=== PATIENT | male | born 1975 ===

== ENCOUNTER 2020-07-16 17:35 | Emergency (ER) | payer SELFPAY ==
[2020-07-16] MEDS ORDERED: Tetracaine HCl/PF 0.5% 4 ML Bottle EYEBOTH ONE (17:48)
--- NOTE | 2020-07-16 18:04 | EDM.PDOC ---
ED HPI GENERAL MEDICAL PROBLEM - General Chief Complaint: Eye Problems Stated Complaint: METAL IN EYE Time Seen by Provider: 07/16/20 17:47 - History of Present Illness INITIAL COMMENTS - FREE TEXT/NARRATIVE: HISTORY AND PHYSICAL: History of present illness: This 45-year-old male was working at home when he got a metal shaving into his left thigh and was unable to remove it. He is an electrician third. He states that he has a foreign body sensation in his left eye. Rates it as mild to moderate. Worse with movement of his eye and opening of the eye. No other modifying, agg ravating or alleviating factors. No other associated signs or symptoms. Review of systems: A 10-point review of systems, other than pertinent positives and negatives as stated per HPI, is otherwise negative. Past medical history: As per history of present illness and as reviewed below otherwise noncontributory. Surgical history: As per history of present illness and as reviewed below otherwise noncontributory. Social history: No reported history of drug or alcohol abuse. Family history: As per history of present illness and as reviewed below otherwise noncontributory. Physical exam: VITAL SIGNS: Reviewed. GENERAL: In no apparent distress. HEAD: No signs of head trauma. EYES: Pupils are equal. Extraocular motions intact. There is a metallic foreign body in the left IN the upper left quadrant but still on the iris area. EARS: Hearing grossly intact. MOUTH: Oropharynx is normal. NECK: No adenopathy, no JVD. CHEST: Chest with clear breath sounds bilaterally. No wheezes, rales, or rhonchi. CARDIAC: Regular rate and rhythm. Normal S1 and S2, without murmurs, gallops, or rubs. VASCULAR: Peripheral pulses normal and equal in all extremities. ABDOMEN: Soft, without detectable tenderness. No sign of distention. No rebound or guarding, and no masses palpated. MUSCULOSKELETAL: Good range of motion of all major joints. Extremities without clubbing, cyanosis or edema. NEUROLOGIC EXAM: Alert and oriented x 3. No focal sensory or motor deficits. Speech normal. Follows commands. PSYCHIATRIC: Mood normal. SKIN: No rash or lesions. Procedure Note: Eye examined under magnification with removal of ocular foreign body Indication: Foreign body sensation in eye with eye pain After adequate anesthesia with proparacaine eyedrops after staining with fluorescein the eye was inspected under high power magnification and with the black light Findings: 1. Slight corneal abrasion 2. [place] foreign body isolated and removed 3. Anterior chamber appears normal Interpretation: Evidence of globe rupture. Metallic foreign body isolated and removed. Small corneal abrasion Signed by Sergio Gray M.D. Initial Differential Diagnosis & Plan: Left eye foreign body, corneal abrasion, globe perforation No evidence of perforation with exam and fluorescein staining. Metallic foreign body was removed. My diagnostic impression: 1. Ocular foreign body; removed 2. Tetanus vaccination is up-to-date 3. Small corneal abrasion Follow-up with ophthalmology. Erythromycin ophthalmic ointment left eye Pain Score (Numeric/FACES): 1 - Related Data Allergies Allergy/AdvReac Type Severity Reaction Status Date / Time Penicillins Allergy Other Verified 07/16/20 17:42 Home Meds: Home Meds Erythromycin Base [Erythromycin 0.5% Ophth Oint] 1 applic .XX BID 7 Days #1 tube 07/16/20 [Rx] Past Medical History HEENT History: Reports: None Cardiovascular History: Reports: None Respiratory History: Reports: None Gastrointestinal History: Reports: None Genitourinary History: Reports: None Musculoskeletal History: Reports: None Neurological History: Reports: None Psychiatric History: Reports: None Endocrine/Metabolic History: Reports: None Hematologic History: Reports: None Immunologic History: Reports: None Oncologic (Cancer) History: Reports: None Dermatologic History: Reports: None - Infectious Disease History Infectious Disease History: Reports: None - Past Surgical History Head Surgeries/Procedures: Reports: None HEENT Surgical History: Reports: None Cardiovascular Surgical History: Reports: None Respiratory Surgical History: Reports: None GI Surgical History: Reports: None Male Surgical History: Reports: None Endocrine Surgical History: Reports: None Neurological Surgical History: Reports: None Musculoskeletal Surgical History: Reports: Other (See Below) Other Musculoskeletal Surgeries/Procedures:: hip, and shoulder surgery Oncologic Surgical History: Reports: None Dermatological Surgical History: Reports: None Social & Family History - Family History Family Medical History: Noncontributory - Tobacco Use Smoking Status *Q: Never Smoker Second Hand Smoke Exposure: No - Caffeine Use Caffeine Use: Reports: None - Recreational Drug Use Recreational Drug Use: No ED ROS GENERAL - Review of Systems Review Of Systems: See Below (noted) ED EXAM GENERAL W FULL EYE - Physical Exam Exam: See Below (noted) Course - Vital Signs Last Recorded V/S: Last Vital Signs Temp 96.9 F 07/16/20 17:43 Pulse 54 L 07/16/20 17:43 Resp 17 07/16/20 17:43 BP 110/80 07/16/20 17:43 Pulse Ox 98 07/16/20 17:43 - Orders/Labs/Meds Meds: Medications Discontinued Medications Generic Name Dose Route Start Last Admin Trade Name Fresandy PRN Reason Stop Dose Admin Tetracaine HCl 1 ml 07/16/20 17:48 07/16/20 17:55 Tetracaine 0.5% Steri-Unit Charlene EYEBOTH 07/16/20 17:49 1 dose ASDIRECTED ONE Administration Departure - Departure Time of Disposition: 18:03 Disposition: Home, Self-Care 01 Clinical Impression: Corneal abrasion, Eye foreign body - Discharge Information *PRESCRIPTION DRUG MONITORING PROGRAM REVIEWED*: Not Applicable *COPY OF PRESCRIPTION DRUG MONITORING REPORT IN PATIENT SCOTT: Not Applicable Prescriptions: Erythromycin Base [Erythromycin 0.5% Ophth Oint] 1 applic .XX BID 7 Days #1 tube Instructions: Corneal Abrasion, [id number] Referrals: PCP,Not In Area [Primary Care Provider] - Forms: ED Department Discharge Additional Instructions: The following information is given to patients seen in the emergency department who are being discharged to home. This information is to outline your options for follow-up care. We provide all patients seen in our emergency department with a follow-up referral. The need for follow-up, as well as the timing and circumstances, are variable depending upon the specifics of your emergency department visit. If you don't have a primary care physician on staff, we will provide you with a referral. We always advise you to contact your personal physician following an emergency department visit to inform them of the circumstance of the visit and for follow-up with them and/or the need for any referrals to a consulting specialist. The emergency department will also refer you to a specialist when appropriate. This referral assures that you have the opportunity for follow-up care with a specialist. All of these measure are taken in an effort to provide you with optimal care, which includes your follow-up. Thank you for coming to the [facility] urgency department for your care today. It was Dr. Gray's pleasure to take care of you. [facility] -Ophthalmology clinic [address] [place] [id number] Please call for follow-up appointment with ophthalmology clinic. You had metal object/metal shaving in your left eye that was removed. An exam under microscope shows that there is no evidence of retained metal foreign body. Please return for worsening. Please use the antibiotic ointment in your eye as prescribed. Under all circumstances we always encourage you to contact your private physician who remains a resource for coordinating your care. When calling for follow-up care, please make the office aware that this follow-up is from your recent emergency room visit. If for any reason you are refused follow-up, please contact the [facility] Emergency Department at and asked to speak to the emergency department charge nurse. Sepsis Event Note (ED) - Evaluation Sepsis Screening Result: No Definite Risk - Focused Exam Vital Signs: Vital Signs Temp Pulse Resp BP Pulse Ox 07/16/20 17:43 96.9 F 54 L 17 110/80 98
== END 2020-07-16 18:14 | disposition home or self-care (01) ==
LOC: MW.ED 17:35
DX: S05.02XA Injury of conjunctiva and corneal abrasion without foreign body, left eye, initial encounter (principal); Z88.0 Allergy status to penicillin; W22.8XXA Striking against or struck by other objects, initial encounter; Y92.009 Unspecified place in unspecified non-institutional (private) residence as the place of occurrence of the external cause
CPT/HCPCS: 65222; 99282; 99283